=== PATIENT | male | born 1955 | race Caucasian/White ===

== ENCOUNTER 2017-05-11 12:48 | Emergency (ER) | payer OTHER ==
[~2017-05-11] VITALS: Ht 180.3 cm; Wt 95.8 kg
[2017-05-11 14:27] VITALS: BP 124/70
== END 2017-05-11 14:31 | disposition home or self-care (01) ==
LOC: ED 12:48
DX: S06.0X0A Concussion without loss of consciousness, initial encounter (principal); S42.012A Anterior displaced fracture of sternal end of left clavicle, initial encounter for closed fracture; V87.8XXA Person injured in other specified noncollision transport accidents involving motor vehicle (traffic), initial encounter; Y93.89 Activity, other specified; Y92.89 Other specified places as the place of occurrence of the external cause; Y99.8 Other external cause status
CPT/HCPCS: J1885; Q0092; Q0162

== ENCOUNTER 2017-05-11 21:29 | Emergency (ER) | payer OTHER ==
[2017-05-12 01:19] VITALS: BP 123/63
== END 2017-05-12 01:19 | disposition home or self-care (01) ==
LOC: ED 21:29
DX: S42.002A Fracture of unspecified part of left clavicle, initial encounter for closed fracture (principal); S20.212A Contusion of left front wall of thorax, initial encounter; S70.02XA Contusion of left hip, initial encounter; V29.9XXA Motorcycle rider (driver) (passenger) injured in unspecified traffic accident, initial encounter; Y93.89 Activity, other specified; Y92.89 Other specified places as the place of occurrence of the external cause; Y99.8 Other external cause status